=== PATIENT | female | born 1940 | race Caucasian/White ===

== ENCOUNTER 2018-11-27 11:01 | Emergency (ER) | payer MEDICARE ==
--- NOTE | 2018-11-27 11:11 | ER Report ---
History and Physical Time Seen By MD: 11:11 HPI/ROS CHIEF COMPLAINT: Nausea, vomiting HISTORY OF PRESENT ILLNESS: 78-year-old female patient presents to emergency room with complaint of nausea and vomiting. Patient states this been going on since Wednesday of this past week. She states she's not been able to eat or drink anything since that time. She denies any fevers, chills or diarrhea. Patient states that her had been ill last weekend and then she got it on Wednesday. She states that symptoms have persisted. She states that she go to urgent care, where they evaluated her and found that she had a negative influenza. The patient referred her to emergency room for more definitive care. Patient states she does have some nausea today she had some toast morning. She states she has not vomited. REVIEW OF SYSTEMS: Respiratory: No cough, no dyspnea. Cardiovascular: No chest pain, no palpitations. Gastrointestinal: As noted above Musculoskeletal: No back pain. Allergies: Coded Allergies: No Known Drug Allergies (Unverified , 03/20/17) Home Meds Active Scripts Ondansetron 4 Mg Odt (ONDANSETRON 4 MG ODT) 4 Mg Tab.rapdis, 4 MG PO Q6H PRN for NAUSEA/VOMITING, #20 TAB Prov:MADELINE BLANCHARDSSE CARYL 11/27/18 Reported Medications Lisinopril (LISINOPRIL) 10 Mg Tablet, 10 MG PO QDAY, TAB 11/27/18 Spironolactone (SPIRONOLACTONE) 25 Mg Tablet, 25 MG PO DAILY, TAB 11/27/18 Celecoxib (CELEBREX) 200 Mg Capsule, 200 MG PO QDAY, CAPSULE 11/27/18 Warfarin Sodium (COUMADIN) 4 Mg Tablet, 4 MG PO QDAY 11/27/18 Pravastatin Sodium (PRAVACHOL) 20 Mg Tablet, 40 MG PO QDAY, TAB 11/27/18 Furosemide (FUROSEMIDE) 40 Mg Tablet, 1 TAB PO DAILY, TAB 11/27/18 Diltiazem Hcl (DILTIAZEM ER) 300 Mg Capsule.er, 300 MG PO DAILY 11/27/18 Brimonidine/Timolol (COMBIGAN EYE DROPS) 1 Drop Drop, 1 DROP OD, DROP 11/27/18 Latanoprost/Pf (Latanoprost 0.005% Eye Drop) 0.005 % Drops 11/27/18 Past Medical/Surgical History Patient has a past medical history of A. fib, hypertension, hyperlipidemia, glaucoma. Patient denies any surgical history. Reviewed Nurses Notes: Yes Constitutional Vital Sign - Last 24 Hours 11/27/18 11/27/18 11/27/18 11/27/18 11:10 11:30 11:33 12:00 Pulse 66 68 64 Resp 20 14 7 B/P (MAP) 102/81 78/67 (71) 90/47 (61) 93/64 (74) Pulse Ox 90 92 99 O2 Delivery Room Air 11/27/18 11/27/18 12:30 13:00 Pulse 73 71 Resp 12 14 B/P (MAP) 84/61 (69) 85/59 (68) Physical Exam General Appearance: The patient is alert, has no immediate need for airway protection and no current signs of toxicity. Respiratory: Chest is non tender, lungs are clear to auscultation. Cardiac: regular rate and rhythm Gastrointestinal: Abdomen is soft and mildly tender in the right upper quadrant, no masses, bowel sounds hypoactive. Musculoskeletal: Neck: Neck is supple and non tender. Extremities have full range of motion and are non tender. Skin: No rashes or lesions. DIFFERENTIAL DIAGNOSIS: After history and physical exam differential diagnosis was considered for nausea and vomiting including but not limited to gastroenteritis, gastritis, appendicitis, and medication side effect. Medical Decision Making Data Points Result Diagram: 11/27/18 1124 11/27/18 1124 Laboratory Hematology Test 11/27/18 11:24 Red Blood Count 5.68 M/uL (4.17-5.56) Mean Corpuscular Volume 92.4 fL (80.0-96.0) Mean Corpuscular Hemoglobin 31.1 pg (26.0-33.0) Mean Corpuscular Hemoglobin Concent 33.6 g/dL (32.0-36.0) Red Cell Distribution Width 13.8 % (11.5-14.5) Mean Platelet Volume 8.7 fL (7.2-11.1) Neutrophils (%) (Auto) 53.4 % (39.4-72.5) Lymphocytes (%) (Auto) 33.1 % (17.6-49.6) Monocytes (%) (Auto) 11.7 % (4.1-12.4) Eosinophils (%) (Auto) 0.7 % (0.4-6.7) Basophils (%) (Auto) 1.1 % (0.3-1.4) Nucleated RBC Relative Count (auto) 0.3 /100WBC Neutrophils # (Auto) 2.9 K/uL (2.0-7.4) Lymphocytes # (Auto) 1.8 K/uL (1.3-3.6) Monocytes # (Auto) 0.6 K/uL (0.3-1.0) Eosinophils # (Auto) 0.0 K/uL (0.0-0.5) Basophils # (Auto) 0.1 K/uL (0.0-0.1) Nucleated RBC Absolute Count (auto) 0.02 K/uL Peripheral Blood Smear No Y/N Sodium Level 138 mmol/L (137-145) Potassium Level 3.4 mmol/L (3.5-5.0) Chloride Level 104 mmol/L (98-107) Carbon Dioxide Level 23 mmol/L (22-31) Blood Urea Nitrogen 37 mg/dl (7-18) Creatinine 1.60 mg/dl (0.52-1.04) Glomerular Filtration Rate Calc 31.2 Random Glucose 154 mg/dl (75-110) Calcium Level 10.4 mg/dl (8.4-10.2) Total Bilirubin 0.3 mg/dl (0.2-1.3) Aspartate Amino Transf (AST/SGOT) 58 U/L (0-35) Alanine Aminotransferase (ALT/SGPT) 54 U/L (0-56) Alkaline Phosphatase 60 U/L (0-126) Troponin I < 0.012 ng/ml Total Protein 7.2 g/dl (6.3-8.2) Albumin 4.3 g/dl (3.5-5.0) Amylase Level 115 U/L (0-110) Lipase 244 U/L (23-300) Influenza Virus Type A (PCR) Positive (NEGATIVE) Influenza Virus Type B (PCR) Negative (NEGATIVE) Chemistry Test 11/27/18 11:24 White Blood Count 5.3 k/uL (4.5-11.0) Red Blood Count 5.68 M/uL (4.17-5.56) Hemoglobin 17.6 g/dL (12.0-16.0) Hematocrit 52.5 % (34.0-47.0) Mean Corpuscular Volume 92.4 fL (80.0-96.0) Mean Corpuscular Hemoglobin 31.1 pg (26.0-33.0) Mean Corpuscular Hemoglobin Concent 33.6 g/dL (32.0-36.0) Red Cell Distribution Width 13.8 % (11.5-14.5) Platelet Count 226 K/uL (150-450) Mean Platelet Volume 8.7 fL (7.2-11.1) Neutrophils (%) (Auto) 53.4 % (39.4-72.5) Lymphocytes (%) (Auto) 33.1 % (17.6-49.6) Monocytes (%) (Auto) 11.7 % (4.1-12.4) Eosinophils (%) (Auto) 0.7 % (0.4-6.7) Basophils (%) (Auto) 1.1 % (0.3-1.4) Nucleated RBC Relative Count (auto) 0.3 /100WBC Neutrophils # (Auto) 2.9 K/uL (2.0-7.4) Lymphocytes # (Auto) 1.8 K/uL (1.3-3.6) Monocytes # (Auto) 0.6 K/uL (0.3-1.0) Eosinophils # (Auto) 0.0 K/uL (0.0-0.5) Basophils # (Auto) 0.1 K/uL (0.0-0.1) Nucleated RBC Absolute Count (auto) 0.02 K/uL Peripheral Blood Smear No Y/N Glomerular Filtration Rate Calc 31.2 Calcium Level 10.4 mg/dl (8.4-10.2) Total Bilirubin 0.3 mg/dl (0.2-1.3) Aspartate Amino Transf (AST/SGOT) 58 U/L (0-35) Alanine Aminotransferase (ALT/SGPT) 54 U/L (0-56) Alkaline Phosphatase 60 U/L (0-126) Troponin I < 0.012 ng/ml Total Protein 7.2 g/dl (6.3-8.2) Albumin 4.3 g/dl (3.5-5.0) Amylase Level 115 U/L (0-110) Lipase 244 U/L (23-300) Influenza Virus Type A (PCR) Positive (NEGATIVE) Influenza Virus Type B (PCR) Negative (NEGATIVE) EKG/Imaging EKG Interpretation 12 lead EKG: Rhythm: Atrial fibrillation with ventricular rate of 65 bpm [place]: normal QRS: Low voltage QRS ST segments: normal Imaging EXAMINATION: CT Abdomen and Pelvis Without Contrast 11/27/2018 11:44 AM HISTORY: vomiting TECHNIQUE: Spiral scan was through the abdomen and pelvis without contrast. One of the following dose optimization techniques was utilized in the performance of this exam: Automated exposure control; adjustment of the mA and/or kV according to the patient's size; or use of an iterative reconstruction technique. Specific details can be referenced in the facility's radiology CT exam operational policy. COMPARISON STUDIES: none. FINDINGS: Liver / biliary: 1.2 cm hypodensity along the posterior capsule of the right lobe is likely an incidental cyst or hemangioma. No acute biliary finding. Pancreas: No acute inflammation around the pancreas. Incidentally a duodenal diverticulum projects along the back of the pancreatic head. Spleen: negative Adrenal glands: negative Kidneys / retroperitoneum: Nonobstructive intrarenal nephrolithiasis bilaterally. Cortical calcifications versus calculi within peripheral caliectasis in the posterior upper right kidney. Small low density in the lateral right kidney presumably is a cyst although is incompletely assessed without contrast. No acute-appearing perinephric stranding. No ureteral stone or dilatation on either side. Pelvic structures: Prior hysterectomy. No bladder calculus. Bowel / peritoneum / mesenteries: Circumferential thickening of the distal esophagus above the GE junction. Duodenal diverticulum, as above. No distention or fluid retention within bowel. Normal appendix. No significant diverticular changes in the colon. Vessels: Atherosclerosis including coronary disease. Musculoskeletal / Body wall: Small fatty umbilical hernia. Levoscoliotic lumbar curvature and degenerative changes including mild anterolistheses at L4-5 and L5-S1. Lymph node assessment: negative Lower chest: negative IMPRESSION: 1. Nonobstructive intrarenal nephrolithiasis bilaterally. 2. Circumferential thickening of the esophagus above the GE junction. This may be inflammatory related to reflux or possibly exacerbated by the recent vomiting. Mass cannot be excluded entirely and endoscopy could be considered. Report Dictated By: Jordan Alcala MD at 11/27/2018 12:32 PM Report E-Signed By: Jordan Alcala MD at 11/27/2018 12:40 PM ED Course/Re-evaluation ED Course Patient was admitted to an exam room, history and physical were obtained. Differential diagnoses were considered. On examination lungs are clear, heart was regular, abdomen was soft and mildly tender, patient had normal active bowel sounds. A CBC, CMP, CT scan of the abdomen and pelvis, influenza screen were done. Patient had an IV started and did receive a liter of normal saline and 4 mg Zofran. Patient states she did feel better and felt that her nausea had s ignificant improvement. CT scan showed no acute findings. Patient had lab work consistent with a viral illness. Patient was influenza A positive. I believe that the cause of her nausea vomiting and not feeling well for the past 5 days is influenza. I anticipate that she will have improvement over the next 2-3 days. Patient verbalized understanding and agreement. We'll go ahead and discharge patient home at this time. Decision to Disposition Date: Nov 27, 2018 Decision to Disposition Time: 13:00 Depart Departure Latest Vital Signs Vital Signs Date Time Temp Pulse Resp B/P (MAP) Pulse Ox O2 Delivery O2 Flow Rate FiO2 11/27/18 13:00 71 14 85/59 (68) 11/27/18 12:00 99 11/27/18 11:10 Room Air Impression: Primary Impression: Influenza A Additional Impression: Nausea & vomiting Condition: Improved Disposition: HOME OR SELF-CARE Referrals: JOSE QUARLES DO (PCP) New Scripts Ondansetron 4 Mg Odt (ONDANSETRON 4 MG ODT) 4 Mg Tab.rapdis 4 MG PO Q6H PRN for NAUSEA/VOMITING, #20 TAB Prov: RADHA BLANCHARD 11/27/18 Patient Instructions: Influenza (ED) Additional Instructions: Increase fluid intake. Get plenty of rest. Take Tylenol or Ibuprofen as needed for fevers. Stay home until you are fever free for 24 hours. Return to the ER if condition worsens. Follow up with your primary care provider in the next week with any concerns. Clear liquid diet for the next 24-48 hours. After that you may advance diet as tolerated starting with complex carb ohydrates; rice, bread or pasta. Problem Qualifiers Additional Impression: Nausea & vomiting Vomiting type: unspecified Vomiting Intractability: non-intractable Qualified Codes: R11.2 - Nausea with vomiting, unspecified RADHA BLANCHARD Nov 27, 2018 11:11
[2018-11-27] MEDS ORDERED: LISI-362 PO (11:14)
[2018-11-27] MEDS ORDERED: PRAV20TA65 PO (11:14)
[2018-11-27] MEDS ORDERED: DILT300C3 PO (11:14)
[2018-11-27] MEDS ORDERED: WARF4TAB46 PO (11:14)
[2018-11-27] MEDS ORDERED: COMODPT OD (11:14)
[2018-11-27] MEDS ORDERED: SPIR25TA80 PO (11:14)
[2018-11-27] MEDS ORDERED: FURO-47 PO (11:14)
[2018-11-27] MEDS ORDERED: CELE-1 PO (11:14)
[2018-11-27] MEDS ORDERED: LATA7.5D (11:14)
[2018-11-27] MEDS ORDERED: NS(*) 0.9% 1000 ML BAG 1,000 ML IV ONE (11:18)
[2018-11-27] MEDS ORDERED: ONDANSETRON 4 MG/2 ML VIAL IVP ONE (11:20)
[2018-11-27 11:32] LABS: PLATELET COUNT, AUTOMATED 226 K/uL (150-450)
[2018-11-27] MEDS ORDERED: IOPAMIDOL 76% 100 ML INFUS BTL 0 ML ONE (11:39)
--- NOTE | 2018-11-27 11:42 | EKG ---
FACILITY: [facility] - [place] PATIENT NAME: KRISTOFER ABDALLA : [id number] MR: [id number] V: [id number] EXAM DATE: ORDERING PHYSICIAN: RADHA BLANCHARD TECHNOLOGIST: DIANA Test Reason : NAUSEA Blood Pressure : / mmHG Vent. Rate : 065 BPM Atrial Rate : 394 BPM P-R Int : 000 ms QRS Dur : 082 ms QT Int : 458 ms P-R-T Axes : 000 -16 -05 degrees QTc Int : 476 ms Atrial fibrillation Low voltage QRS Abnormal ECG When compared with ECG of 20-MAR-2017 11:38, QT has lengthened Confirmed by Lars Jones ([id number]) on 11/28/2018 12:21:15 AM Referred By: LO Confirmed By:Lars Mo
--- NOTE | 2018-11-27 12:44 | RADIOLOGY IMAGING REPORT ---
FACILITY: [facility] - [place] PATIENT NAME: Argenis Del Castillo : 1940 MR: [id number] V: [id number] EXAM DATE: [id number] ORDERING PHYSICIAN: RADHA BLANCHARD TECHNOLOGIST: Location: [facility] [place] Patient: Argenis Del Castillo : 1940 Visit/Account:[id number] Date of Sevice: 11/27/2018 EXAMINATION: CT Abdomen and Pelvis Without Contrast 11/27/2018 11:44 AM HISTORY: vomiting TECHNIQUE: Spiral scan was through the abdomen and pelvis without contrast. One of the following dose optimization techniques was utilized in the performance of this exam: Autom ated exposure control; adjustment of the mA and/or kV according to the patient's size; or use of an i terative reconstruction technique. Specific details can be referenced in the facility's radiology C T exam operational policy. COMPARISON STUDIES: none. FINDINGS: Liver / biliary: 1.2 cm hypodensity along the posterior capsule of the right lobe is likely an incide ntal cyst or hemangioma. No acute biliary finding. Pancreas: No acute inflammation around the pancreas. Incidentally a duodenal diverticulum projects al gelacio the back of the pancreatic head. Spleen: negative Adrenal glands: negative Kidneys / retroperitoneum: Nonobstructive intrarenal nephrolithiasis bilaterally. Cortical calcificat ions versus calculi within peripheral caliectasis in the posterior upper right kidney. Small low dens ity in the lateral right kidney presumably is a cyst although is incompletely assessed without contra st. No acute-appearing perinephric stranding. No ureteral stone or dilatation on either side. Pelvic structures: Prior hysterectomy. No bladder calculus. Bowel / peritoneum / mesenteries: Circumferential thickening of the distal esophagus above the GE saba ction. Duodenal diverticulum, as above. No distention or fluid retention within bowel. Normal appendi x. No significant diverticular changes in the colon. Vessels: Atherosclerosis including coronary disease. Musculoskeletal / Body wall: Small fatty umbilical hernia. Levoscoliotic lumbar curvature and degener ative changes including mild anterolistheses at L4-5 and L5-S1. Lymph node assessment: negative Lower chest: negative IMPRESSION: 1. Nonobstructive intrarenal nephrolithiasis bilaterally. 2. Circumferential thickening of the esophagus above the GE junction. This may be inflammatory relate d to reflux or possibly exacerbated by the recent vomiting. Mass cannot be excluded entirely and endo scopy could be considered. Report Dictated By: Jordan Alcala MD at 11/27/2018 12:32 PM Report E-Signed By: Jordan Alcala MD at 11/27/2018 12:40 PM WSN:[id number]
[2018-11-27 13:00] VITALS: BP 85/59
[2018-11-27] MEDS ORDERED: ONDA4TAB9 PO (13:00)
== END 2018-11-27 17:00 | disposition home or self-care (01) ==
LOC: ER 11:29
DX: J11.1 Influenza due to unidentified influenza virus with other respiratory manifestations (principal); I48.91 Unspecified atrial fibrillation; R94.31 Abnormal electrocardiogram [ECG] [EKG]
CPT/HCPCS: 74176; 82150; 83690; 84484; 85025; 87502; 93005; 96361; 96374; 99284; J2405; J7030; 82040; 82247; 82310; 82374; 82435; 82565; 82947; 84075; 84132; 84155; 84295; 84450; 84460; 84520; Q9967

== ENCOUNTER → 2018-12-28 | Outpatient (CLI) | payer MEDICARE ==
[~2018-12-28] MED LIST: CELE-1 PO; COMODPT OD; DILT300C3 PO; FURO-47 PO; LATA7.5D; LISI-362 PO; ONDA4TAB9 PO; PRAV20TA65 PO; SPIR25TA80 PO; WARF4TAB46 PO
== END ==
LOC: LAB 10:40
PROVIDERS: ATTEND Internal Medicine Cardiovascular Disease
DX: E87.6 Hypokalemia (principal); N17.9 Acute kidney failure, unspecified
CPT/HCPCS: 36415; 82310; 82374; 82435; 82565; 82947; 84132; 84295; 84520